=== PATIENT | female | born 1985 | race Caucasian/White ===

== ENCOUNTER 2016-11-04 09:00 | Inpatient (IN) | payer OTHER ==
[~2016-11-04] VITALS: Ht 157 cm; Wt 103.7 kg
[~2016-11-04 09:00] MED LIST: BACTDS PO; CEPH-443 PO; IBUP-1542 PO; LORA-441 PO; LORA1TAB PO; METO10TA92 PO; NITR-58 PO; POLY17PO6 PO
[2016-11-04] MEDS ORDERED: MISOPROSTOL 200 MCG TAB PR PRN (11:00)
[2016-11-04] MEDS ORDERED: OXYTOCIN 30 UNITS/LR 500 ML IV PRN (11:00)
[2016-11-04] MEDS ORDERED: LIDOCAINE 1% (MPF) 30 ML INJ INJ PRN (11:00)
[2016-11-04] MEDS ORDERED: IBUPROFEN 600 MG TAB PO PRN (11:00)
[2016-11-04] MEDS ORDERED: CARBOPROST 250 MCG INJ IM PRN (11:00)
[2016-11-04] MEDS ORDERED: METHYLERGONOVINE 0.2 MG INJ IM PRN (11:00)
[2016-11-04] MEDS ORDERED: OXYTOCIN 30 UNITS/LR 500 ML IV SCH ×2 (11:00)
[2016-11-04] MEDS ORDERED: BUTORPHANOL 2 MG INJ IV PRN (11:00)
[2016-11-04] MEDS: LACTATED RINGER'S 1,000 ML IV SCH ×2 (11:06→17:11)
[2016-11-04 11:21] LABS: ADD SCAN DIFF NO
[2016-11-04 11:26] VITALS: BP 129/72; PULSE 93; RESP 18
[2016-11-04 11:27] LABS: BASOPHILS % 0.3 % (0.0-2.0); EOSINOPHILS % 0.3 % (0.0-7.0); HEMATOCRIT 31.5 % (37.0-47.0); HEMOGLOBIN 10.7 g/dl (12.0-16.0); LYMPHOCYTES # 1.4 10^3/ul (0.8-2.9); LYMPHOCYTES % 20.2 % (15.0-51.0); MEAN CORPUSCULAR HEMOGLOBIN 30.9 pg (29.0-33.0); MEAN PLATELET VOLUME 10.5 fl (7.4-10.4); MONOCYTE # 0.4 10^3/ul (0.3-0.9); NEUTROPHILS % 72.8 % (39.0-77.0); PLATELET COUNT 233 10^3/UL (140-415); RED BLOOD COUNT 3.46 10^6/ul (4.20-5.40); RED CELL DISTRIBUTION WIDTH 13.9 % (11.5-14.5); WHITE BLOOD COUNT 6.8 10^3/ul (4.8-10.8)
[2016-11-04] MEDS ORDERED: DINOPROSTONE 10 MG VAG SUPP VAG ONE (11:30)
[2016-11-04 11:49] LABS: PROTIME 13.2 Sec (12.2-14.2)
[2016-11-04 11:50] LABS: PARTIAL THROMBOPLASTIN TIME 29.7 Sec (25.0-35.0)
[2016-11-04] MEDS ORDERED: LACTATED RINGER'S 1,000 ML IV PRN (12:00)
[2016-11-04] MEDS ORDERED: PRENAT PO (13:01)
--- NOTE | 2016-11-04 18:51 | HP ---
Date/Time of Note Date/Time of Note DATE: 11/04/16 TIME: 18:48 OB - History Hx of Present Free Text/Dictation admitted on EDC for induction Last Menstrual Period: Jan 29, 2016 Estimated Due Date: Nov 04, 2016 : 6 Para: 4 Spontaneous : 1 Care: Good Care Ultrasounds: Normal mid trimester US Obstetrical Complications: Other (positive marker to trisomy 18) Past Family/Social History * Past Medical, Surgical, Family and Obstetric Histories reviewed from chart. Blood Type: O+ Rubella: immune RPR/VDRL: Negative GBS Status: Negative HBsAG: Negative OB Admission Exam Vital Signs Vital Signs Vital Signs Date Time Temp Pulse Resp B/P Pulse Ox O2 Delivery O2 Flow Rate FiO2 11/04/16 11:26 97.6 93 18 129/72 Room Air Physical Exam HEENT: WNL Heart: Rhythm Normal Lungs: Clear, Equal Abdomen: WNL Extremities: Normal Reflexes: Normal Cervical Dilatation: None Effacement: 0% Station: -3 Membranes: Intact Accelerations: Accelerations Present Varibility: Moderate Last 72 hours Lab Results CBC & BMP 11/04/16 11:00 OB Assessment/Plan Reason for admission: induction of labor Other Assessment: term gestation Induction Method: per Misoprostol Protocol MUNIR IVORY MD Nov 04, 2016 18:50
[2016-11-05] MEDS: LACTATED RINGER'S 1,000 ML IV SCH ×2 (01:15→06:38)
[2016-11-05] MEDS ORDERED: LACTATED RINGER'S 1,000 ML IV ONE (06:33)
[2016-11-05] MEDS ORDERED: ONDANSETRON 4 MG INJ ONE (06:36)
[2016-11-05] MEDS ORDERED: CITRIC ACID/NA CITRATE 30 ML CUP ONE (06:36)
[2016-11-05] MEDS ORDERED: FENTAnyl 2MCG/ML-ROPIV 0.2% 0 ML ONE (06:39)
[2016-11-05] MEDS ORDERED: ONDANSETRON 4 MG INJ IV PRN (07:00)
[2016-11-05] MEDS ORDERED: PROCHLORPERAZINE 10 MG INJ IV PRN (07:00)
[2016-11-05] MEDS ORDERED: ONDANSETRON 4 MG INJ IV ONE (07:00)
[2016-11-05] MEDS ORDERED: DIPHENHYDRAMINE 50 MG INJ IV PRN (07:00)
[2016-11-05] MEDS ORDERED: morphine 2 MG INJ IV PRN ×2 (07:00)
[2016-11-05] MEDS ORDERED: KETOROLAC 30 MG INJ IV PRN (07:00)
[2016-11-05] MEDS ORDERED: OXYTOCIN 10 UNIT INJ IM PRN (07:00)
[2016-11-05] MEDS ORDERED: FENTAnyl 2MCG/ML-ROPIV 0.2% 100 ML BAG EPI SCH (07:00)
[2016-11-05] MEDS ORDERED: NALOXONE (0.4 MG/ML) INJ IV PRN (07:00)
[2016-11-05] MEDS ORDERED: CITRIC ACID/NA CITRATE 30 ML CUP PO ONE (07:00)
--- NOTE | 2016-11-05 07:30 | LDN ---
Date/Time of Note Date/Time of Note DATE: 11/05/16 TIME: 07:27 Delivery Summary normal vaginal delivery Weeks of Gestation 40weeks Placenta Delivered: Spontaneously Meconium: none Episiotomy: No Perineal laceration: 1 Laceration repair: ooch Anesthesia type: Local Estimated blood loss: 300 Sponge & Needle done & correct: Yes All needle counts correct: Yes Any foreign bodies felt in the: No Problems: Infant Delivery Information Sex Infant Sex: male Apgars 1 Minute: 9 5 Minute: 9 Suctioning Nose & mouth suctioned at deepti: Yes Delee suction performed: No Umbilical Cord Umbilical cord with: 3 Vessels Cord presentations: no nuchal cord Cord Blood was obtained: Yes Mother & Baby Disposition Disposition Mom & Baby to Maternity; Good: Yes Mom transferred to: Other () Baby to NICU: No LARRY KELLEY MD Nov 05, 2016 07:29
[2016-11-05 09:00] VITALS: BP 113/64; PULSE 60; RESP 18
[2016-11-05] MEDS ORDERED: MISOPROSTOL 200 MCG TAB PR PRN (09:30)
[2016-11-05] MEDS ORDERED: OXYCODONE/ASPIRIN (4.88/325) TAB PO PRN ×2 (09:30)
[2016-11-05] MEDS ORDERED: BENZOCAINE 20% 56 ML SPRAY TOP PRN (09:30)
[2016-11-05] MEDS ORDERED: METHYLERGONOVINE 0.2 MG INJ IM PRN (09:30)
[2016-11-05] MEDS ORDERED: CARBOPROST 250 MCG INJ IM PRN (09:30)
[2016-11-05] MEDS ORDERED: WITCH HAZEL/GLYCERIN PAD PR PRN (09:30)
[2016-11-05] MEDS ORDERED: LANOLIN 7 GM TUBE TOP PRN (09:30)
[2016-11-05] MEDS ORDERED: OXYTOCIN 30 UNITS/LR 500 ML IV PRN (09:30)
[2016-11-05] MEDS ORDERED: ZOLPIDEM 5 MG TAB PO PRN (09:30)
[2016-11-05] MEDS: IBUPROFEN 600 MG TAB PO SCH ×3 (11:18→23:41)
[2016-11-05 16:04] VITALS: BP 109/58; PULSE 59; RESP 18
[2016-11-05 16:36] VITALS: BP 113/60; PULSE 58
[2016-11-05 20:15] VITALS: BP 111/60; PULSE 62; RESP 19
[2016-11-05] MEDS: SENNA/DOCUSATE NA (8.6MG/50MG) TAB PO SCH (20:20)
[2016-11-06 04:20] VITALS: BP 103/65; PULSE 52; RESP 20
[2016-11-06] MEDS: IBUPROFEN 600 MG TAB PO SCH ×4 (05:33→23:18)
[2016-11-06 08:03] LABS: ADD SCAN DIFF NO
[2016-11-06 08:08] LABS: BASOPHILS % 0.2 % (0.0-2.0); EOSINOPHILS # 0.1 10^3/ul (0.0-0.5); EOSINOPHILS % 0.6 % (0.0-7.0); HEMATOCRIT 26.7 % (37.0-47.0); HEMOGLOBIN 8.7 g/dl (12.0-16.0); LYMPHOCYTES % 25.4 % (15.0-51.0); MEAN CORPUSCULAR HEMOGLOBIN 30.5 pg (29.0-33.0); MEAN CORPUSCULAR HGB CONC 32.6 g/dl (32.0-37.0); MEAN CORPUSCULAR VOLUME 93.7 fl (82.0-101.0); MEAN PLATELET VOLUME 10.8 fl (7.4-10.4); MONOCYTE # 0.5 10^3/ul (0.3-0.9); MONOCYTES % 6.5 % (0.0-11.0); NEUTROPHIL # 5.4 10^3/ul (1.6-7.5); NEUTROPHILS % 67.1 % (39.0-77.0); PLATELET COUNT 184 10^3/UL (140-415); RED BLOOD COUNT 2.85 10^6/ul (4.20-5.40); RED CELL DISTRIBUTION WIDTH 14.2 % (11.5-14.5)
[2016-11-06 08:30] VITALS: BP 106/63; PULSE 73; RESP 18
[2016-11-06] MEDS: SENNA/DOCUSATE NA (8.6MG/50MG) TAB PO SCH ×2 (09:06→21:00)
--- NOTE | 2016-11-06 14:06 | DS ---
Date/Time of Note Date/Time of Note home next day DATE: 11/06/16 TIME: 14:04 Obstetrical Discharge Record Final Diagnosis Final Diagnosis: Term delivered Other Final Diagnosis S/P vaginal delivery Vaginal Delivery Obstetrical Delivery: Spontaneous, Laceration, Repaired Complications Augmentation: No Induction: Yes Condition on Discharge Physical Assessment Last Vitals: see nurses notes Voiding: Yes Bowel Movement: Yes Breast: Soft, non-tender, Filling Fundus: Firm Abdomen and Incision: soft BS + Episiotomy: NA perineum healing Calf Tenderness: No Patient Condition: Good MUNIR IVORY MD Nov 06, 2016 14:06
--- NOTE | 2016-11-06 14:07 | PD.PPDC ---
[employer]ER Discharge Instruction Provider Information Physician Information 31 /o female had vaginal delivery Diagnosis Final Diagnosis: S/P vaginal delivery Condition Patient Condition: Good Diet Diet: Resume Regular Diet Activity/Restrictions Activity: Normal Activity May Shower Restrictions: Nothing in the Vagina Return to Work or School: Dec 22, 2016 Follow-up Follow-up with Physician: 4, Week/Weeks (in clinic ) Return to clinic for OB Instructions: Breast Tenderness Depression MUNIR IVORY MD Nov 06, 2016 14:07
[2016-11-06] MEDS ORDERED: IBUP-1542 PO (14:08)
[2016-11-06 16:18] VITALS: BP 119/61; PULSE 58; RESP 18
[2016-11-06 20:00] VITALS: BP 117/64; PULSE 61; RESP 20
[2016-11-07 04:00] VITALS: BP 109/60; PULSE 65; RESP 18
[2016-11-07] MEDS: IBUPROFEN 600 MG TAB PO SCH ×3 (05:31→17:32)
[2016-11-07 07:45] VITALS: BP 102/64; PULSE 72; RESP 18
[2016-11-07] MEDS ORDERED: DIPHTH/TET/ACEL PERTUSS (ADULT) 0.5 ML VIAL IM* ONE (09:00)
[2016-11-07] MEDS: SENNA/DOCUSATE NA (8.6MG/50MG) TAB PO SCH (09:21)
[2016-11-07 15:57] VITALS: BP 119/73; PULSE 57; RESP 16
== END 2016-11-07 18:20 | disposition home or self-care (01) | DRG 775 ==
LOC: L-D 10:02 → PP1 11-05 09:02
PROVIDERS: ADMIT Obstetrics & Gynecology; ATTEND Obstetrics & Gynecology
PROC: 10E0XZZ Delivery of Products of Conception, External Approach (ICD-10-PCS; principal; 2016-11-05)
PROC: 0HQ9XZZ Repair Perineum Skin, External Approach (ICD-10-PCS; 2016-11-05)
DX: O48.0 Post-term pregnancy (principal); Z37.0 Single live birth; Z3A.40 40 weeks gestation of pregnancy
CPT/HCPCS: 85025; 85610; 85730; 86592; 86900; 86901; 87340; 90715; J1885; J2405; J2590; J3010; J7120

== ENCOUNTER 2019-03-21 06:32 | Emergency (ER) | payer OTHER ==
[~2019-03-21] VITALS: Ht 154.9 cm; Wt 96.7 kg
[~2019-03-21 06:32] MED LIST changes: -BACTDS PO; -CEPH-443 PO; -LORA-441 PO; -LORA1TAB PO; +MECL-77 PO; -METO10TA92 PO; -NITR-58 PO; +ONDA4TAB14 PO; -POLY17PO6 PO; +PRENAT PO
[2019-03-21 06:36] VITALS: BP 118/77; PULSE 71; RESP 18; Ht 154.9 cm; Wt 96.7 kg
[2019-03-21] MEDS ORDERED: ONDANSETRON (ODT) 4 MG TAB ODT STA (06:46)
[2019-03-21] MEDS ORDERED: MECLIZINE 12.5 MG TAB PO ONE (07:00)
== END 2019-03-21 07:42 | disposition home or self-care (01) ==
LOC: FTE 06:32
DX: H81.10 Benign paroxysmal vertigo, unspecified ear (principal); R11.0 Nausea
CPT/HCPCS: 81025; 82962; 99283